=== PATIENT | male | born 2005 | race Two or more races ===

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

== ENCOUNTER 2025-02-03 22:39 | Emergency (ER) | payer OTHER ==
[~2025-02-03] VITALS: Ht 154.9 cm; Wt 77.1 kg
[~2025-02-03 22:39] MED LIST changes: +CEPH500C2 PO; +IBUP-1957 PO
[2025-02-03 23:30] LABS: *BILIRUBIN,URIN NEGATIVE (NEGATIVE); *BLOOD, URINE 1+ (NEGATIVE); *KETONES,URINE NEGATIVE (NEGATIVE); *PROTEIN,URINE NEGATIVE (NEGATIVE); *UROBILINOGEN,URINE 0.2 E.U./dl (NORMAL); LEUKOCYTE ESTERASE ,URINE 2+ (NEGATIVE); NITRITE, URINE NEGATIVE (NEGATIVE); UGLUCOSE NEGATIVE (NEGATIVE)
[2025-02-03 23:31] LABS: *CLARITY,URINE CLOUDY (CLEAR)
[2025-02-03 23:32] LABS: *COLOR,URINE LIGHT YELLOW (YELLOW)
[2025-02-03 23:49] LABS: SQUAMOUS EPITHELIAL CELL,UR FEW /HPF (NONE SEEN)
[2025-02-04] VITALS: BP 121/66
[2025-02-04] MEDS ORDERED: CEFTRIAXONE 1 G VIAL ONE (02:59)
[2025-02-04] MEDS ORDERED: LIDOCAINE HCL 1% 20 ML VIAL ONE (02:59)
[2025-02-04] MEDS ORDERED: AZITHROMYCIN 250 MG TABLET ONE (03:00)
[2025-02-04] MEDS ORDERED: DOXY100C5 PO (03:09)
[2025-02-04] MEDS: CEFTRIAXONE 1 G VIAL IM ONE (03:10)
[2025-02-04] MEDS: AZITHROMYCIN 250 MG TABLET PO ONE (03:10)
[2025-02-04 03:18] VITALS: BP 118/67; TEMP 98; O2SAT 96
[2025-02-04 04:06] LABS: *AMPHETAMINE, URINE NEGATIVE (NEGATIVE); *BARBITURATE, URINE NEGATIVE (NEGATIVE); *BENZODIAZEPINE, URINE NEGATIVE (NEGATIVE); *CANNABINOID, URINE NEGATIVE (NEGATIVE); *COCCAINE, URINE NEGATIVE (NEGATIVE); *OPIATE, URINE NEGATIVE (NEGATIVE); *PHENCYCLIDINE SCREEN,URINE NEGATIVE (NEGATIVE); FENTANYL, URINE NEGATIVE (NEGATIVE)
[2025-02-05 22:07] LABS: *CHLAMYDIA NAA Negative (Negative); *GC NAA Positive (Negative); *TRIC.VAG. NAA Negative (Negative)
== END 2025-02-04 03:19 | disposition home or self-care (01) ==
LOC: ER 22:41
DX: R30.0 Dysuria (principal); N34.2 Other urethritis
CPT/HCPCS: 99283; 81001; 87086; 87491; 96372; 80307; J0696; J3490; A4606; A4663; Q0144